=== PATIENT | male | born 1965 | race Caucasian/White ===

== ENCOUNTER 2022-06-17 20:18 | Emergency (ER) | payer OTHER ==
[~2022-06-17] VITALS: Ht 175.3 cm; Wt 77.1 kg
[2022-06-17 21:33] VITALS: BP 138/74
== END 2022-06-17 21:50 | disposition left against medical advice (07) ==
LOC: ER 20:23
DX: Z53.21 Procedure and treatment not carried out due to patient leaving prior to being seen by health care provider (principal)